=== PATIENT | male | born 1950 | race Caucasian/White ===

== ENCOUNTER → 2016-08-28 | Outpatient (REF) | payer OTHER ==
[~2016-08-28] MED LIST: ACYC1CAP8 PO; ATOR1TAB21 PO; GLIM2TAB PO; GLIMEPIRIDE; INVO100T PO; LIPI10TA PO; METF1000 PO; PAXI30TA11 PO; PAXIL; TRAM50TA2 PO
[2016-08-28 14:05] LABS: BASO % 0.4 % (0.0-1.0); EOS # 0.2 K/mm3 (0.0-0.50); EOS % 2.3 % (0.0-3.0); LARGE UNSTAINED CELL # 0.1 K/mm3 (0.0-0.4); LARGE UNSTAINED CELL % 1.1 % (0.0-4.0); LYMPH # 1.5 K/mm3 (1.5-4.5); MEAN CORPUSCULAR HEMOGLOBIN 30.1 pg (27.0-33.0); MEAN CORPUSCULAR HGB CONC 34.3 g/dl (32.0-36.5); MEAN CORPUSCULAR VOLUME 87.7 fl (80.0-96.0); MONO # 0.4 K/mm3 (0.0-0.8); MONO % 5.1 % (0.0-5.0); NEUTROPHILS # 5.3 K/mm3 (1.8-7.7); NEUTROPHILS % 72.1 % (36.0-66.0); PLATELET COUNT, AUTOMATED 189 k/mm3 (150-450); RED CELL DISTRIBUTION WIDTH 12.7 % (11.5-14.5); WHITE BLOOD COUNT 7.4 K/mm3 (4.0-10.0)
[2016-08-28 14:09] LABS: ALBUMIN 3.6 GM/DL (3.2-5.2); ALBUMIN/GLOBULIN RATIO 1.24 (1.00-1.93); ALKALINE PHOSPHATASE 68 U/L (45-117); ALT/SGPT 29 U/L (12-78); ANION GAP 9 MEQ/L (8-16); AST/SGOT 12 U/L (15-37); BILIRUBIN,TOTAL 0.4 MG/DL (0.2-1.0); BLOOD UREA NITROGEN 17 MG/DL (7-18); CARBON DIOXIDE LEVEL 29 MEQ/L (21-32); CHLORIDE LEVEL 101 MEQ/L (98-107); CREATININE FOR GFR 0.95 MG/DL (0.70-1.30); GLOMERULAR FILTRATION RATE > 60.0 (>49); GLUCOSE, FASTING 341 MG/DL (80-110); POTASSIUM SERUM 4.4 MEQ/L (3.5-5.1); SODIUM LEVEL 139 MEQ/L (136-145); TOTAL PROTEIN 6.5 GM/DL (6.4-8.2)
== END ==
LOC: M LABDRAW1 12:45
PROVIDERS: ATTEND Orthopaedic Surgery
DX: M48.06 Spinal stenosis, lumbar region (principal)

== ENCOUNTER 2020-10-22 23:06 | Observation (INO) | payer MEDICARE, BC ==
[~2020-10-22] VITALS: Ht 167.6 cm; Wt 106.3 kg
[~2020-10-22 23:06] MED LIST changes: -ACYC1CAP8 PO; +ACYC200C8 PO; -GLIM2TAB PO; +GLIM2TAB4 PO; -METF1000 PO; +METF10004 PO
[2020-10-23] MEDS ORDERED: LISI2.5T2 PO (00:03)
[2020-10-23] MEDS ORDERED: FLUO20CA22 PO (00:03)
[2020-10-23] MEDS ORDERED: GABA-282 PO (00:03)
[2020-10-23] MEDS ORDERED: MECL-86 PO (00:03)
[2020-10-23 00:36] LABS: BASO % 0.3 % (0.0-1.0); EOS # 0.1 10^3/uL (0.0-0.5); EOS % 0.5 % (0.0-3.0); HEMATOCRIT 36.7 % (42.0-52.0); LYMPH # 0.8 10^3/uL (1.5-5.0); LYMPH % 6.9 % (24.0-44.0); MEAN CORPUSCULAR HEMOGLOBIN 27.8 pg (27.0-33.0); MEAN CORPUSCULAR HGB CONC 32.7 g/dl (32.0-36.5); MEAN CORPUSCULAR VOLUME 85.2 fl (80.0-96.0); MONO # 0.6 10^3/uL (0.0-0.8); MONO % 5.1 % (2.0-8.0); NEUTROPHILS % 86.4 % (36.0-66.0); PLATELET COUNT, AUTOMATED 215 10^3/uL (150-450); RED BLOOD COUNT 4.31 10^6/uL (4.30-6.10); WHITE BLOOD COUNT 11.6 10^3/uL (4.0-10.0)
[2020-10-23 00:39] LABS: INR 1.02; PROTHROMBIN TIME 13.6 SECONDS (12.5-14.3)
[2020-10-23 00:40] LABS: PARTIAL THROMBOPLASTIN TIME 22.8 SECONDS (24.2-38.5)
[2020-10-23 00:43] LABS: ALBUMIN 3.5 GM/DL (3.2-5.2); ALT/SGPT 18 U/L (12-78); BILIRUBIN,DIRECT < 0.1 MG/DL (0.0-0.2); BILIRUBIN,TOTAL 0.2 MG/DL (0.2-1.0); BLOOD UREA NITROGEN 19 MG/DL (7-18); CALCIUM LEVEL 9.2 MG/DL (8.8-10.2); CARBON DIOXIDE LEVEL 29 MEQ/L (21-32); CHLORIDE LEVEL 105 MEQ/L (98-107); CK-MB VALUE MASS < 1.0 NG/ML (<3.6); CPK CREATINE PHOSPHOKINASE 51 U/L (39-308); GLOMERULAR FILTRATION RATE > 60.0 (>49); GLUCOSE, FASTING 265 MG/DL (70-100); MB/CK RELATIVE INDEX 1.96 (< OR =4); POTASSIUM SERUM 4.4 MEQ/L (3.5-5.1); SODIUM LEVEL 140 MEQ/L (136-145); TOTAL PROTEIN 6.8 GM/DL (6.4-8.2); TROPONIN I < 0.02 NG/ML (< 0.10)
--- NOTE | 2020-10-23 01:06 | REPVR ---
PROCEDURE INFORMATION: Exam: XR Chest Exam date and time: 10/23/20 (12:40am) Age: 70 years old Clinical indication: Chest pain. Near syncope. TECHNIQUE: Imaging protocol: XR of the chest Views: 2 views COMPARISON: No relevant prior studies available FINDINGS: Lungs: Unremarkable. No consolidation. Pleural spaces: Unremarkable. No pleural effusions. No pneumothorax. Heart/Mediastinum: Mild cardiomegaly. Bones/joints: Unremarkable. IMPRESSION: No acute findings. Electronically signed by: Angeli Saleem On 10/23/2020 01:07:26 AM
[2020-10-23] MEDS ORDERED: GLIM4TAB5 PO (02:34)
--- NOTE | 2020-10-23 03:01 | REPVR ---
PROCEDURE INFORMATION: Exam: CT Head Without Contrast Exam date and time: 10/23/2020 2:15 AM Age: 70 years old Clinical indication: Dizziness; Additional info: Numbness, slurred speech resolved TECHNIQUE: Imaging protocol: Computed tomography of the head without contrast. Radiation optimization: All CT scans at this facility use at least one of these dose optimization techniques: automated exposure control; mA and/or kV adjustment per patient size (includes targeted exams where dose is matched to clinical indication); or iterative reconstruction. COMPARISON: No relevant prior studies available. FINDINGS: Brain: Mild volume loss. No acute intracranial hemorrhage, midline shift or intracranial mass effect. Cerebral ventricles: No hydrocephalus. Bones/joints: Unremarkable. No acute fracture. Paranasal sinuses: Visualized sinuses are unremarkable. No fluid levels. Mastoid air cells: Visualized mastoid air cells are well aerated. Soft tissues: Unremarkable. IMPRESSION: No acute intracranial abnormality. Electronically signed by: Stanislaw Fulton On 10/23/2020 03:02:18 AM
[2020-10-23] MEDS ORDERED: ASPIRIN 325 MG TAB PO ONE (03:10)
[2020-10-23] MEDS ORDERED: MECLIZINE 25 MG TABLET PO PRN (03:35)
[2020-10-23] MEDS ORDERED: MOM 30ML SUSPENSION UDC PO PRN (03:35)
[2020-10-23] MEDS ORDERED: ACETAMINOPHEN TAB 650MG DOSE (2X325MG) PO PRN (03:35)
[2020-10-23] MEDS ORDERED: MAALOX 30 ML SUSP *UDC PO PRN (03:35)
[2020-10-23] MEDS ORDERED: traMADol 50 MG TAB PO PRN (03:35)
[2020-10-23] MEDS ORDERED: GLUCAGON INJ 1MG VIAL SC PRN (03:55)
[2020-10-23] MEDS ORDERED: DEXTROSE 50% 50 ML SYRINGE IV PRN (03:55)
[2020-10-23] MEDS ORDERED: GLUCOSE 4GM CHEW TABLET PO PRN (03:55)
--- NOTE | 2020-10-23 04:16 | HPEPDOC ---
[facility] Medical History & Physical Date of Admission Oct 23, 2020 Date of Service: Oct 23, 2020 Attending Physician: SONIA WHITTINGTON MD History and Physical CHIEF COMPLAINT: [This is a 70 y/o male who reports to the ED after having a near-syncope type episode.] HISTORY OF PRESENT ILLNESS: [This is a 70 y/o male with a pmh of htn, dm2 with diabetic neuropathy, bppv and dyslipidemia who presents to the ED after having a near-syncope type episode. Patient states that last night 10/22 he feels he may have accidentally taken too much medication. He states he believes he took two ibuprofen, one gabapentin, and 1000mg of metformin but is not totally sure. What happened next, he says he does not remember. Patient was told by his that he was on the ground, vomiting, having slurred speech, and complaining of numbness of his extremities. No tonic clonic movements. Patient states that all he remembers is possible dizziness and a strong sense of impending doom. Patient states that he also experienced some mild chest discomfort but thinks this is musculoskeletal from moving a washing machine a few days ago. Patient denies headache, vision changes, weakness, continued dysarthria, hearing loss, con tinued chest pain, sob, abd pain, fevers, chills, nuchal rigidity, fever, chills. ] PAST MEDICAL HISTORY: 1. [See HPI PAST SURGICAL HISTORY: 1. [reviewed with pt - none SOCIAL HISTORY: Marital status: []. Resides in: [Home with ] Tobacco use:[Denies] ETOH: [Denies] Illicit drug use: [Denies] FAMILY HISTORY: DM2 ALLERGIES: Please see below. REVIEW OF SYSTEMS: CONSTITUTIONAL: [See HPI]. HEENT: [Denies URI sx]. CARDIOVASCULAR: [See HPI]. RESPIRATORY: [See HPI]. GASTROINTESTINAL: [See HPI]. GENITOURINARY: [Denies dysuria]. SKIN: [Denies rash]. MUSCULOSKELETAL: [Denies acute joint pain]. NEUROLOGICAL: [See HPI]. ENDOCRINE: [Hx DM]. HEMATOLOGIC/LYMPHATIC: [Denies easy bruising]. HOME MEDICATIONS: Please see below. PHYSICAL EXAMINATION: VITAL SIGNS: Please see below. GENERAL APPEARANCE: [This is a tired appearing 70 y/o male. He is resting in bed.]. HEENT: [No mass or lesion. EOMI. No scleral icterus. Nares patent. oral mucosa moist without erythema.]. CARDIOVASCULAR: [regular rate, rhythm. no murmurs, rubs, gallops.]. LUNGS: [good air flow auscultated. no wheezing, rales, rhonchi.]. ABDOMEN: [non-distended. non-tender]. MUSCULOSKELETAL: [no joint deformity]. EXTREMITIES: [No peripheral edema appreciated. pulses intact. no overlying skin changes. no clubbing, cyanosis]. NEUROLOGICAL: [Sensation decreased to b/l lower extremities. Strength 5/5 b/l. Speech clear. A+Ox3. No focal deficits]. PSYCHIATRIC: [Mood appears appropriate. Flat affect.]. LABORATORY DATA: See below. IMAGING: [Chest x-ray: FINDINGS: Lungs: Unremarkable. No consolidation. Pleural spaces: Unremarkable. No pleural effusions. No pneumothorax. Heart/Mediastinum: Mild cardiomegaly. Bones/joints: Unremarkable. IMPRESSION: No acute findings. Head CT: FINDINGS: Brain: Mild volume loss. No acute intracranial hemorrhage, midline shift or intracranial mass effect. Cerebral ventricles: No hydrocephalus. Bones/joints: Unremarkable. No acute fracture. Paranasal sinuses: Visualized sinuses are unremarkable. No fluid levels. Mastoid air cells: Visualized mastoid air cells are well aerated. Soft tissues: Unremarkable. IMPRESSION: No acute intracranial abnormality. ] MICROBIOLOGY: Please see below. ASSESSMENT: [This is a 70 y/o male with a pmh of htn, dm2, bppv and dyslipidemia who presents to the ed after an event that was worrisome for stroke or overdose. At the time of my assessment of this patient, he was somnolent and had to be woken up for the exam. Patient states that he was having no residual symptoms and just wanted to sleep. ]. . PLAN: 1. [Near-syncope - TIA vs. Vertigo vs. overdose - Will do full tia workup due to witnessed slurred speech by . - CT brain negative. - MRI brain, carotid US ordered - Patient has a hx of vertigo, but has not had symptoms in "a while." When asked, patient states that he feels this episode could have been vertigo, as he feels he remembers some dizziness. - Overdose seems less likely as patient would need to take more pills than what he was describing to me - Will admit to med surg tele under obs pending results of mri/mra and carotid us 2. DM2 - SSI, hypoglycemic protocol - continue gabapentin 3. HTN - continue lisinopril 4. Dyslipidemia - continue atorvastatin 5. Depression - continue Fluoxetine 6. DVT prophylaxis - lovenox]. Vital Signs Vital Signs Date Time Temp Pulse Resp B/P (MAP) Pulse Ox O2 Delivery O2 Flow Rate FiO2 10/22/20 23:58 72 95 10/22/20 23:48 96.8 19 149/76 (100) Room Air Laboratory Data Labs 24H Laboratory Tests 2 10/22/20 23:48: Immature Granulocyte % (Auto) 0.8, Neutrophils (%) (Auto) 86.4H, Lymphocytes (%) (Auto) 6.9L, Monocytes (%) (Auto) 5.1, Eosinophils (%) (Auto) 0.5, Basophils (%) (Auto) 0.3, Neutrophils # (Auto) 10.0H, Lymphocytes # (Auto) 0.8L, Monocytes # (Auto) 0.6, Eosinophils # (Auto) 0.1, Basophils # (Auto) 0.0, Nucleated Red Blood Cells % (auto) 0.0, Prothrombin Time 13.6, Prothromb Time International Ratio 1.02, Activated Partial Thromboplast Time 22.8L, Anion Gap 6L, Glomerular Filtration Rate > 60.0, Calcium Level 9.2, Total Bilirubin 0.2, Direct Bilirubin < 0.1, Aspartate Amino Transf (AST/SGOT) 8, Alanine Aminotransferase (ALT/SGPT) 18, Alkaline Phosphatase 79, Total Creatine Kinase 51, Creatine Kinase MB < 1.0, Creatine Kinase MB Relative Index 1.96, Troponin I < 0.02, Total Protein 6.8, Albumin 3.5, Albumin/Globulin Ratio 1.1, Thyroid Stimulating Hormone (TSH) 1.450, Free Thyroxine 0.90 CBC/BMP Laboratory Tests 10/22/20 23:48 Home Medications Scheduled Atorvastatin Calcium (Atorvastatin Calcium) 20 Mg Tab, 20 MG PO DAILY Fluoxetine Hcl (Fluoxetine HCl) 20 Mg Capsule, 20 MG PO BID Gabapentin (Gabapentin) 300 Mg Capsule, 300 MG PO QID Glimepiride (Glimepiride) 4 Mg Tablet, 4 MG PO BID Lisinopril (Lisinopril) 2.5 Mg Tablet, 2.5 MG PO DAILY Metformin HCl (Metformin HCl) 1,000 Mg Tab, 1,000 MG PO BID Scheduled PRN Meclizine HCl (Meclizine HCl) 25 Mg Tablet, 25 MG PO Q8H PRN for NAUSEA Tramadol HCl (Tramadol HCl) 50 Mg Tab, 50 MG PO Q4-6HP PRN for PAIN Allergies Coded Allergies: No Known Allergies (Unverified , 10/23/20) A-FIB/CHADSVASC A-FIB History Current/History of A-Fib/PAF?: No Attending Note Attending Note time of service 333am Mr. Feliciano is a 70 yr old w a hx of HTN, dm2 w neuropathy, bppv and dyslipidemia who presented w c/o dizziness and will be admitted to r/o CVA rest per Álvaro H&P CARLOS LU Oct 23, 2020 04:16 SONIA WHITTINGTON MD Oct 23, 2020 07:14
--- NOTE | 2020-10-23 05:47 | REPVR ---
PROCEDURE INFORMATION: Exam: MRA Head Without Contrast; Arteriography Exam date and time: 10/23/2020 5:06 AM Age: 70 years old Clinical indication: Pain; Headache; Additional info: CVA TECHNIQUE: Imaging protocol: Magnetic resonance angiography head without contrast. Exam focused on the arteries. COMPARISON: CT Head without contrast 10/23/2020 2:21 AM FINDINGS: There is no significant stenosis, occlusion or aneurysmal dilatation within the anterior or posterior intracranial arterial circulation. IMPRESSION: No significant stenosis, aneurysmal dilatation or large vessel occlusion within the anterior or posterior intracranial arterial circulation. Electronically signed by: Lobito Salvador On 10/23/2020 05:47:44 AM
--- NOTE | 2020-10-23 05:51 | REPVR ---
PROCEDURE INFORMATION: Exam: MR Head Without Contrast Exam date and time: 10/23/2020 5:06 AM Age: 70 years old Clinical indication: Pain; Headache; Cluster; Additional info: CVA TECHNIQUE: Imaging protocol: MR of the head without contrast. COMPARISON: CT Head without contrast 10/23/2020 2:21 AM FINDINGS: On diffusion weighted sequences, there is no evidence of true restricted diffusion. No evidence of acute infarction. There are no intra-or extra-axial hemorrhages or fluid collections. There is no mass effect or midline shift. Ventricles are symmetrical and nondilated. On FLAIR sequences, probable minimal changes of chronic ischemia/infarction in the periventricular deep white matter. There are no focal parenchymal abnormalities. Midline craniocervical structures are grossly normal. Normal flow voids are identified in the major intracranial arteries. Paranasal sinuses and mastoid air cells are clear. IMPRESSION: No evidence of true restricted diffusion. No evidence of acute infarction. No acute intracranial process. Electronically signed by: Lobito Salvador On 10/23/2020 05:52:03 AM
--- NOTE | 2020-10-23 05:55 | REPVR ---
PROCEDURE INFORMATION: Exam: US Duplex Bilateral Extracranial Arteries Exam date and time: 10/23/2020 5:42 AM Age: 70 years old Clinical indication: Dizziness; Additional info: TIA R/O TECHNIQUE: Imaging protocol: Real-time Duplex ultrasound scan of the bilateral carotid and vertebral arteries combining ojeda scale, color Doppler and spectral waveform analysis. Bilateral exam. COMPARISON: MRA BRAIN W/O CONTRAST 10/23/2020 4:40 AM FINDINGS: The within the right carotid system, peak systolic velocity within the right common carotid artery is normal, ranging between 80 and 119 cm/s. Peak systolic velocity within the right internal carotid artery is within normal limits, ranging between 59 and 62 cm/s. Ratio of internal carotid to common carotid artery is within normal limits at 0.52. Within the left carotid system, peak systolic velocity within the left common carotid artery is within normal limits, ranging between 86 and 115 cm/s. Peak systolic velocity within the left internal carotid artery is within normal limits, ranging between 61 and 86 cm/s. Ratio of internal carotid to common carotid artery is within normal limits at 0.59. Antegrade flow in the right vertebral artery. Left vertebral artery is not visualized. IMPRESSION: Nonvisualization of the left vertebral artery. No significant stenosis or occlusion within the carotid systems or right vertebral artery. REFERENCES: SRU CRITERIA. The degree of internal carotid artery stenosis is based on criteria defined by the Society of Radiologists in Ultrasound (SRU). Normal is no stenosis. Mild is less than 50% stenosis. Moderate is 50-69% stenosis. Severe is greater than 69% stenosis to near occlusion. Near occlusion is a markedly narrowed lumen. Total occlusion is no detectable patent lumen. Electronically signed by: Lobito Salvador On 10/23/2020 05:55:55 AM
[2020-10-23 07:44] VITALS: BP 181/61
[2020-10-23 08:13] LABS: HEMATOCRIT 35.9 % (42.0-52.0); HEMOGLOBIN 11.8 g/dl (13.5-17.5); MEAN CORPUSCULAR HEMOGLOBIN 28.2 pg (27.0-33.0); MEAN CORPUSCULAR HGB CONC 32.9 g/dl (32.0-36.5); MEAN CORPUSCULAR VOLUME 85.9 fl (80.0-96.0); PLATELET COUNT, AUTOMATED 202 10^3/uL (150-450); RED BLOOD COUNT 4.18 10^6/uL (4.30-6.10)
[2020-10-23] MEDS: LISINOPRIL *2.5 MG* TAB PO SCH (08:39)
[2020-10-23] MEDS: ENOXAPARIN 40MG/0.4ML SYRINGE (J1650 PER 10MG) SC SCH (08:39)
[2020-10-23] MEDS: FLUoxetine 20 MG CAP PO SCH ×2 (08:39→21:13)
[2020-10-23] MEDS: DOCUSATE SODIUM 100MG CAPSULE PO SCH ×2 (08:39→21:13)
[2020-10-23] MEDS: GABAPENTIN 300 MG CAP PO SCH ×4 (08:39→21:13)
[2020-10-23] MEDS: ATORVASTATIN 20 MG TAB PO SCH (08:39)
[2020-10-23 08:40] LABS: BLOOD UREA NITROGEN 18 MG/DL (7-18); CALCIUM LEVEL 8.8 MG/DL (8.8-10.2); CARBON DIOXIDE LEVEL 27 MEQ/L (21-32); CHLORIDE LEVEL 108 MEQ/L (98-107); CK-MB VALUE MASS < 1.0 NG/ML (<3.6); CPK CREATINE PHOSPHOKINASE 43 U/L (39-308); CREATININE FOR GFR 0.85 MG/DL (0.70-1.30); GLOMERULAR FILTRATION RATE > 60.0 (>49); GLUCOSE, FASTING 250 MG/DL (70-100); MB/CK RELATIVE INDEX 2.33 (< OR =4); POTASSIUM SERUM 4.3 MEQ/L (3.5-5.1); SODIUM LEVEL 142 MEQ/L (136-145); TROPONIN I < 0.02 NG/ML (< 0.10)
[2020-10-23] MEDS: HumaLOG INSULIN (NovoLOG) PER UNIT SC SCH ×3 (08:40→17:04)
--- NOTE | 2020-10-23 09:41 | ECGEPIP ---
[facility] - ED Test Date: 2020-10-22 Pat Name: ALIS ZHU Department: Room: [place] [address] Gender: Male Adz Worker: Yfn WORLEY : 1950 Requested By: CARMELINA Yuan Order Number: [id number] Reading MD: Adrian Gambino Measurements Intervals Reseda Rate: 70 P: 43 ME: 150 QRS: 22 QRSD: 82 T: 17 QT: 390 QTc: 421 Interpretive Statements Normal sinus rhythm Inferior infarct , age undetermined POOR R WAVE PROGRESSION NO PRIORS FOR COMPARISON Electronically Signed on 10-23-2020 9:41:56 EDT by Adrian Gambino
[2020-10-23 14:00] VITALS: BP 165/75
[2020-10-23 14:37] LABS: CK-MB VALUE MASS < 1.0 NG/ML (<3.6); CPK CREATINE PHOSPHOKINASE 40 U/L (39-308); TROPONIN I < 0.02 NG/ML (< 0.10)
--- NOTE | 2020-10-23 15:27 | IPNPDOC ---
Subjective Date Seen The patient was seen on 10/23/20. Subjective Chief Complaint/HPI Mr. Feliciano is a 70 year old male with hypertension, DM type 2 with diabetic neuropathy, and dyslipidemia for near-syncope. This morning, he denies any chest pain, dyspnea, or nausea. He did not know what he took last night, felt like it was something that had made him "high". Otherwise MRI and MRA head was negative. Will monitor patient on tele today and tomorrow. Objective Physical Examination General Exam: Positive: Alert, Cooperative Eye Exam: Positive: EOMI; Negative: Sclera icteric ENT Exam: Positive: Atraumatic Neck Exam: Positive: Supple Chest Exam: Positive: Clear to auscultation; Negative: Rales, Rhonchi, Wheezing Heart Exam: Positive: Rate Normal, Regular Rhythm Abdomen Exam: Positive: Normal bowel sounds, Soft; Negative: Tenderness Extremity Exam: Negative: Edema Neuro Exam: Positive: Normal Speech Psych Exam: Positive: Mental status NL, Mood NL Assessment /Plan Assessment Mr. Feliciano is a 70 year old male with hypertension, DM type 2 with diabetic neuropathy, and dyslipidemia for near-syncope. MRI and MRA of head were negative. US carotids were negative. Pending echocardiogram. Will monitor on tele. If no arrhythmia, anticipate discharge tomorrow. Plan/VTE VTE Prophylaxis Ordered?: Yes Plan 1. Near syncopal episode -MRI and MRA negative -US carotid negative -Pending echocardiogram -Monitor on Tele today. 2. Hypertension -Continue lisinopril -Added on amlodipine due to elevated blood pressure today 3. Diabetes mellitus type 2 -Continue sliding scale insurlin 4. Diabetic neuropathy -Continue gabapentin 5. Dyslipidemia -Continue atorvastatin 6. Depression -Continue fluoxetine 7. DVT ppx -Lovenox Disposition: If no arrhythmia, anticipate discharge tomorrow after echocardiogram. VS, I&O, 24H, Fishbone Vital Signs/I&O Vital Signs Date Time Temp Pulse Resp B/P (MAP) Pulse Ox O2 Delivery O2 Flow Rate FiO2 10/23/20 14:00 97.2 66 16 165/75 (105) 91 Room Air Laboratory Data 24H LABS Laboratory Tests 2 10/22/20 23:42: Bedside Glucose (Misc Panel) 255H 10/22/20 23:48: Immature Granulocyte % (Auto) 0.8, Neutrophils (%) (Auto) 86.4H, Lymphocytes (%) (Auto) 6.9L, Monocytes (%) (Auto) 5.1, Eosinophils (%) (Auto) 0.5, Basophils (%) (Auto) 0.3, Neutrophils # (Auto) 10.0H, Lymphocytes # (Auto) 0.8L, Monocytes # (Auto) 0.6, Eosinophils # (Auto) 0.1, Basophils # (Auto) 0.0, Nucleated Red Blood Cells % (auto) 0.0, Prothrombin Time 13.6, Prothromb Time International Ratio 1.02, Activated Partial Thromboplast Time 22.8L, Anion Gap 6L, Glomerular Filtration Rate > 60.0, Calcium Level 9.2, Total Bilirubin 0.2, Direct Bilirubin < 0.1, Aspartate Amino Transf (AST/SGOT) 8, Alanine Aminotransferase (ALT/SGPT) 18, Alkaline Phosphatase 79, Total Creatine Kinase 51, Creatine Kinase MB < 1.0, Creatine Kinase MB Relative Index 1.96, Troponin I < 0.02, Total Protein 6.8, Albumin 3.5, Albumin/Globulin Ratio 1.1, Thyroid Stimulating Hormone (TSH) 1.450, Free Thyroxine 0.90 10/23/20 07:51: Nucleated Red Blood Cells % (auto) 0.0, Anion Gap 7L, Glomerular Filtration Rate > 60.0, Calcium Level 8.8, Total Creatine Kinase 43, Creatine Kinase MB < 1.0, Creatine Kinase MB Relative Index 2.33, Troponin I < 0.02 10/23/20 07:59: Bedside Glucose (Misc Panel) 234H 10/23/20 12:01: Bedside Glucose (Misc Panel) 232H 10/23/20 13:49: Total Creatine Kinase 40, Creatine Kinase MB < 1.0, Creatine Kinase MB Relative Index 2.50, Troponin I < 0.02 CBC/BMP Laboratory Tests 10/22/20 23:48 10/23/20 07:51 Microbiology Microbiology 10/23/20 Respiratory Virus Panel (PCR) ([facility]) - Final, Complete RUFINARICARDOYani BOX Oct 23, 2020 15:27
[2020-10-23] MEDS: amLODIPine 5 MG TAB PO SCH (16:00)
[2020-10-23] MEDS ORDERED: HumaLOG INSULIN (NovoLOG) PER UNIT SC SCH (21:00)
[2020-10-23 22:00] VITALS: BP 137/77
[2020-10-24 06:00] VITALS: BP 118/58
[2020-10-24 06:24] LABS: HEMATOCRIT 35.5 % (42.0-52.0); HEMOGLOBIN 11.5 g/dl (13.5-17.5); MEAN CORPUSCULAR HEMOGLOBIN 27.9 pg (27.0-33.0); MEAN CORPUSCULAR HGB CONC 32.4 g/dl (32.0-36.5); MEAN CORPUSCULAR VOLUME 86.2 fl (80.0-96.0); PLATELET COUNT, AUTOMATED 186 10^3/uL (150-450); RED BLOOD COUNT 4.12 10^6/uL (4.30-6.10); WHITE BLOOD COUNT 6.7 10^3/uL (4.0-10.0)
[2020-10-24 06:45] LABS: BLOOD UREA NITROGEN 15 MG/DL (7-18); CALCIUM LEVEL 8.1 MG/DL (8.8-10.2); CARBON DIOXIDE LEVEL 29 MEQ/L (21-32); CHLORIDE LEVEL 110 MEQ/L (98-107); CREATININE FOR GFR 0.67 MG/DL (0.70-1.30); GLOMERULAR FILTRATION RATE > 60.0 (>49); GLUCOSE, FASTING 185 MG/DL (70-100); POTASSIUM SERUM 4.1 MEQ/L (3.5-5.1); SODIUM LEVEL 143 MEQ/L (136-145)
[2020-10-24 09:15] VITALS: BP 142/78
[2020-10-24] MEDS: GABAPENTIN 300 MG CAP PO SCH ×2 (09:15→12:16)
[2020-10-24] MEDS: ATORVASTATIN 20 MG TAB PO SCH (09:15)
[2020-10-24] MEDS: FLUoxetine 20 MG CAP PO SCH (09:15)
[2020-10-24] MEDS: HumaLOG INSULIN (NovoLOG) PER UNIT SC SCH (09:15)
[2020-10-24] MEDS: ENOXAPARIN 40MG/0.4ML SYRINGE (J1650 PER 10MG) SC SCH (09:15)
[2020-10-24] MEDS: LISINOPRIL *2.5 MG* TAB PO SCH (09:15)
[2020-10-24] MEDS: DOCUSATE SODIUM 100MG CAPSULE PO SCH (09:15)
[2020-10-24] MEDS: amLODIPine 5 MG TAB PO SCH (09:16)
[2020-10-24] MEDS ORDERED: AMLO1TAB24 PO (11:06)
--- NOTE | 2020-10-24 21:54 | DS.PDOC ---
Discharge Summary General Date of Admission Oct 22, 2020 at 23:07 Date of Discharge Oct 24, 2020 Discharge Summary PROCEDURES PERFORMED DURING STAY: None ADMITTING DIAGNOSES: 1. Near syncope 2. Diabetes mellitus type 2 3. Hypertension 4. Dyslipidemia 5. Depression DISCHARGE DIAGNOSES: 1. Near syncope 2. Diabetes mellitus type 2 3. Hypertension 4. Dyslipidemia 5. Depression COMPLICATIONS/CHIEF COMPLAINT: Near Syncope. HISTORY OF PRESENT ILLNESS: Mr. Feliciano is a 70 year old male with hypertension, diabetes mellitus, and BPPV who presents with near-syncope. On the night of 10/22, he felt that the took too much of his medication. He believes he took 2 Ibuprofen, 1 gabapentin, and 1000mg of metformin, but he is not sure. He does not remember what happened next. reports that he was on the ground, vomiting, having slurred speech, and complaining of numbness in his extremities. There was no tonic-clonic movements. Patient remember dizziness and a strong sense of impending doom. Patient was admitted for near-syncope and CVA work up. HOSPITAL COURSE: MRI and MRA of head and US neck was negative. No events on the telemetry were seen. This morning, patient felt well. Denies any lightheadedn ess, chest pain, dyspnea, or abdominal pain. He felt that he took something extra, but does not remember what it had been. His blood pressure during his hospitalization was elevated. Started him on amlodipine. Otherwise, he felt ready for home and was subsequently discharged home. DISCHARGE MEDICATIONS: Please see below. ALLERGIES: Please see below. PHYSICAL EXAMINATION ON DISCHARGE: VITAL SIGNS: Please see below. GENERAL: Comfortable, in no apparent distress HEENT: Head normocephalic, atraumatic NECK: Supple CARDIOVASCULAR EXAMINATION: Regular rate and rhythm RESPIRATORY EXAMINATION: Lungs clear to auscultation bilaterally ABDOMINAL EXAMINATION: Soft, non-tender, normal bowel sounds EXTREMITIES: No pitting edema bilaterally SKIN: Warm and dry NEUROLOGICAL EXAMINATION: CN 3-12 grossly intact PSYCHIATRIC EXAMINATION: Normal mood and affect LABORATORY DATA: Please see below. IMAGING: Radiologist interpretation CT head No acute intracranial abnormality. MRI brain No evidence of true restricted diffusion. No evidence of acute infarction. No acute intracranial process. MRA head No significant stenosis, aneurysmal dilatation or large vessel occlusion within the anterior or posterior intracranial arterial circulation. US carotid The within the right carotid system, peak systolic velocity within the right common carotid artery is normal, ranging between 80 and 119 cm/s. Peak systolic velocity within the right internal carotid artery is within normal limits, ranging between 59 and 62 cm/s. Ratio of internal carotid to common carotid artery is within normal limits at 0.52. Within the left carotid system, peak systolic velocity within the left common carotid artery is within normal limits, ranging between 86 and 115 cm/s. Peak systolic velocity within the left internal carotid artery is within normal limits, ranging between 61 and 86 cm/s. Ratio of internal carotid to common carotid artery is within normal limits at 0.59. PROGNOSIS: Good ACTIVITY: As tolerated. DIET: Carbohydrate consistent diet DISCHARGE PLAN: Home DISPOSITION: Home, Self-Care. DISCHARGE INSTRUCTIONS: 1. Follow up with PCP within 1 week ITEMS TO FOLLOWUP ON ON OUTPATIENT: 1. Results from echocardiogram DISCHARGE CONDITION: Stable. Total time spent on discharge planning, discharge summary, and medication reconciliation: 40 minutes Vital Signs/I&Os Vital Signs Date Time Temp Pulse Resp B/P (MAP) Pulse Ox O2 Delivery O2 Flow Rate FiO2 10/24/20 09:15 142/78 10/24/20 06:00 96.8 55 16 96 Room Air I&O- Last 24 Hours up to 6 AM 10/24/20 06:00 Intake Total 2220 ml Output Total 850 ml Balance 1370 ml Laboratory Data Labs 24H Laboratory Tests 2 10/24/20 05:45: Nucleated Red Blood Cells % (auto) 0.0, Anion Gap 4L, Glomerular Filtration Rate > 60.0, Calcium Level 8.1L 10/24/20 11:48: Bedside Glucose (Misc Panel) 332H CBC/BMP Laboratory Tests 10/24/20 05:45 FSBS Laboratory Tests Test 10/24/20 11:48 Range/Units Bedside Glucose (Misc Panel) 332 80-115 MG/DL Microbiology Microbiology 10/23/20 Respiratory Virus Panel (PCR) ([facility]) - Final, Complete Discharge Medications Scheduled Amlodipine Besylate (Amlodipine Besylate) 5 Mg Tablet, 5 MG PO DAILY Atorvastatin Calcium (Atorvastatin Calcium) 20 Mg Tab, 20 MG PO DAILY, (Reported) Fluoxetine Hcl (Fluoxetine HCl) 20 Mg Capsule, 20 MG PO BID, (Reported) Gabapentin (Gabapentin) 300 Mg Capsule, 300 MG PO QID, (Reported) Glimepiride (Glimepiride) 4 Mg Tablet, 4 MG PO BID, (Reported) Lisinopril (Lisinopril) 2.5 Mg Tablet, 2.5 MG PO DAILY, (Reported) Metformin HCl (Metformin HCl) 1,000 Mg Tab, 1,000 MG PO BID, (Reported) Scheduled PRN Meclizine HCl (Meclizine HCl) 25 Mg Tablet, 25 MG PO Q8H PRN for NAUSEA, (Reported) Tramadol HCl (Tramadol HCl) 50 Mg Tab, 50 MG PO Q4-6HP PRN for PAIN, (Reported) Allergies Coded Allergies: No Known Allergies (Unverified , 10/23/20) RICARDO ALMARAZ DO Oct 24, 2020 21:54
--- NOTE | 2020-10-25 10:20 | ECHO ---
DATE OF PROCEDURE: 10/24/2020 Age: 70 Gender: Male Height: 66 inches Weight: 233 pounds Body surface area: 2.13 Inpatient: [address] [place] [address], room 4210 REFERRING PHYSICIAN: Dave Morton MD INDICATION: Syncope. MEASUREMENTS: 2D measurements: RV 3.4 cm LV 4.5 cm Septum 1.3 cm Posterior wall 1.3 cm Aortic root 3.4 cm LA 4.2 cm LVEF 75% Doppler measurements: AV 1.34 m/s LVOT 0.88 m/s MV E 79, A 96, E/A ratio 0.8 Early deceleration time 190 m/s E prime medial 7.9 A prime media 8.2 E prime lateral 8.9 Average E/E prime ratio 9.4/PCWP 13.6 mmHg PV 0.85 m/s Pulmonary artery acceleration time 108 m/s PASP 34 mmHg IVC could not be visualized. COMMENTS: Normal sinus rhythm without intraventricular conduction disturbance. Technically a difficult study in light of the patient's body habitus, but diagnostic useful information was still obtained. M-mode and 2 dimensional echocardiography was performed with pulse, continuous wave, color flow and tissue Doppler studies. Mild concentric left ventricular hypertrophy with hypokinetic wall motion. A mildly dilated left atrium with grade 1 LV diastolic dysfunction, but currently normal estimated mean left atrial pressure. Normal right heart chamber sizes and motion in single Doppler sign of borderline to mild pulmonary hypertension. His inferior vena cava could not be visualized to estimate his central venous pressure. Normal aortic root size. Normal appearing and functioning aortic valve. Mild degenerative changes of the mitral valvular apparatus with no more than trace mitral insufficiency (physiologic). Normal appearing and functioning tricuspid valve. No apparent intracardiac mass or pericardial effusion. MTDD
== END 2020-10-24 12:26 | disposition home or self-care (01) ==
LOC: M ED 23:06 → M ED INP 23:07 → M MSPAV 10-23 07:44
PROVIDERS: ADMIT Internal Medicine; ATTEND Internal Medicine
DX: R55 Syncope and collapse (principal); E11.40 Type 2 diabetes mellitus with diabetic neuropathy, unspecified; I10 Essential (primary) hypertension; E78.5 Hyperlipidemia, unspecified; F32.9 Major depressive disorder, single episode, unspecified; Z79.84 Long term (current) use of oral hypoglycemic drugs; Z79.899 Other long term (current) drug therapy
CPT/HCPCS: 36415; 70450; 70544; 70551; 71046; 80048; 80076; 82550; 82553; 84439; 84443; 84484; 85025; 85027; 85610; 85730; 87798; 93005; 93041; 93306; 93880; 94760; 96372; 99285; G0378; J1650

== ENCOUNTER → 2021-10-19 | Outpatient (REF) | payer MEDICARE ==
[~2021-10-19] MED LIST changes: +ACYC1TAB PO; +AMLO1TAB24 PO; +DOXY-342 PO; +FLUO20CA22 PO; +GABA-282 PO; +GLIM4TAB5 PO; +LEVOTAB10 PO; +LISI2.5T9 PO; +MECL-86 PO; +NOVO70VL SC
[2021-10-21 06:53] LABS: TOTAL PROTEIN 6.5 GM/DL (6.4-8.2)
== END ==
LOC: M LAB REF 16:39
PROVIDERS: ATTEND Internal Medicine Nephrology
DX: N17.9 Acute kidney failure, unspecified (principal)

== ENCOUNTER → 2023-08-03 | Outpatient (CLI) | payer MEDICARE ==
[~2023-08-03] MED LIST changes: -DOXY-342 PO; +DOXY100C82 PO; -PAXI30TA11 PO; +PAXI30TA12 PO
[2023-08-03 14:17] LABS: HEMATOCRIT 39.2 % (42.0-52.0); HEMOGLOBIN 12.9 g/dl (13.5-17.5); MEAN CORPUSCULAR HEMOGLOBIN 28.8 pg (27.0-33.0); MEAN CORPUSCULAR HGB CONC 32.9 g/dl (32.0-36.5); MEAN CORPUSCULAR VOLUME 87.5 fl (80.0-96.0); PLATELET COUNT, AUTOMATED 184 10^3/uL (150-450); RED BLOOD COUNT 4.48 10^6/uL (4.30-6.10); WHITE BLOOD COUNT 7.4 10^3/uL (4.0-10.0)
[2023-08-03 14:40] LABS: ALBUMIN 3.4 G/DL (3.2-5.2); ALKALINE PHOSPHATASE 84 U/L (46-116); ALT/SGPT 27 U/L (7.0-40); AST/SGOT 13 U/L (<34); BILIRUBIN,TOTAL 0.4 MG/DL (0.3-1.2); BLOOD UREA NITROGEN 14 MG/DL (9-23); CALCIUM LEVEL 8.9 MG/DL (8.3-10.6); CARBON DIOXIDE LEVEL 34 MMOL/L (20-31); CHLORIDE LEVEL 106 MMOL/L (98-107); CHOLESTEROL LEVEL 117 MG/DL (<200); CHOLESTEROL RISK RATIO 4.44 (<5); GLOMERULAR FILTRATION RATE > 60.0 (>42); GLUCOSE, FASTING 238 MG/DL (74-106); HDL CHOLESTEROL 26.3 MG/DL (>40); LDL CHOLESTEROL 67.9 MG/DL (<100); MAGNESIUM LEVEL 1.7 MG/DL (1.8-2.4); NON-HDL-C 90.7 MG/DL; POTASSIUM SERUM 4.7 MMOL/L (3.5-5.1); SODIUM LEVEL 142 MMOL/L (136-145); TOTAL PROTEIN 6.4 G/DL (5.7-8.2); TRIGLYCERIDES LEVEL 114 MG/DL (<150)
[2023-08-03 14:44] LABS: HEMOGLOBIN A1c 9.9 % (4.0-6.0)
== END ==
LOC: M PLALAB 09:52
PROVIDERS: ATTEND Registered Nurse
DX: E11.40 Type 2 diabetes mellitus with diabetic neuropathy, unspecified (principal); E83.42 Hypomagnesemia; D64.9 Anemia, unspecified; E78.00 Pure hypercholesterolemia, unspecified

== ENCOUNTER → 2025-03-18 | Outpatient (CLI) | payer MEDICARE ==
[~2025-03-18] MED LIST changes: +ACYC-438 PO; -ACYC1TAB PO; +ACYC200C10 PO; -ACYC200C8 PO; +DOXY-442 PO; -DOXY100C82 PO; +FLUO-365 PO; -FLUO20CA22 PO; +GABA-1172 PO; -GABA-282 PO
[2025-03-18 14:54] LABS: VITAMIN B12 LEVEL 331.0 PG/ML (211-911)
[2025-03-23 11:02] LABS: VITAMIN A, RETINOL LEVEL 60.0 mcg/dL (38-98)
[2025-03-24 07:57] LABS: VITAMIN C, ASCORBIC ACID 0.2 mg/dL (0.2-2.1)
[2025-03-25 16:08] LABS: VITAMIN B1 LEVEL WHOLE BLOOD 91.0 nmol/L (78-185)
== END ==
LOC: M LAB 13:26
PROVIDERS: ATTEND Physician Assistant
DX: S81.802A Unspecified open wound, left lower leg, initial encounter (principal); Z79.4 Long term (current) use of insulin; Z79.84 Long term (current) use of oral hypoglycemic drugs; Z79.899 Other long term (current) drug therapy; E11.65 Type 2 diabetes mellitus with hyperglycemia

== ENCOUNTER → 2025-04-09 | Outpatient (CLI) | payer MEDICARE | LOC: M RAD 14:00 | PROVIDERS: ATTEND Physician Assistant | DX: S81.802A Unspecified open wound, left lower leg, initial encounter (principal); I73.9 Peripheral vascular disease, unspecified ==